=== PATIENT | male | born 1945 | race Hispanic/Latino ===

== ENCOUNTER 2017-04-09 11:26 | Day surgery (SDC) | payer MEDICARE ==
[2017-04-04 09:41] VITALS: BMI 23.3
[2017-04-09] MEDS ORDERED: ceFAZolin IV 1 gm in Dextrose 1 GM/50 ML BAG IVPB ONE ×2 (13:11→13:47)
[2017-04-09] MEDS: Lidocaine 1% Inj (20ml) ONE ×2 (13:15→13:50)
[2017-04-09] MEDS: Bupivacaine-Epi 0.25%-1:200,000 PF Inj ONE ×2 (13:15→13:50)
[2017-04-09] MEDS ORDERED: Lactated Ringer's 1,000 ML IV ONE ×2 (13:16)
[2017-04-09] MEDS ORDERED: Propofol 10 mg/ml Inj (20 ML) ONE (13:18)
[2017-04-09] MEDS ORDERED: Midazolam 2 MG/2 ML VIAL ONE (13:20)
--- NOTE | 2017-04-09 14:43 | PCM.SURG1 ---
Surgeon's Initial Post Op Note - Surgeon's Notes Surgeon: Xander Hudson MD Funeral Arranger: Iris Shelby, PGY-1; Kiki Paige S-III Pre-Operative Diagnosis: Sebacious cyst of posterior neck Operative Findings: Sebacious cyst of posterior neck Post-Operative Diagnosis: Sebacious cyst of posterior neck Operation Performed: Excision of sebacious cyst of posterior neck Specimen/Specimens Removed: Sebacious cyst Estimated Blood Loss: EBL {In ML}: 10 Blood Products Given: N/A Drains Used: No Drains Post-Op Condition: Good Date of Surgery/Procedure: 04/09/17 Time of Surgery/Procedure: 02:20
[2017-04-09 16:25] VITALS: BP 135/69; PULSE 61; RESP 18; TEMP 97.2; O2SAT 100
--- NOTE | 2017-04-22 15:43 | PCM.OP ---
Operative Report - Operative Report Date of Surgery/Procedure: 04/09/17 Time of Surgery/Procedure: 11:00 Surgeon: George Hudson MD. Machinery Engineer: Susan Riley MD. Anesthesia/Sedation: Local anesthesia after sedation. Pre-Operative Diagnosis: 1. Sebaceous cyst of posterior neck, recurrent, approximately 5 cm x 4 cm. Post-Operative Diagnosis: 1. Sebaceous cyst of posterior neck, recurrent, approximately 5 cm x 4 cm. Indication for Surgery: Patient had approximately 5 cm x 4 cm recurrent sebaceous cyst on mid posterior neck. Operative Findings: Sebaceous cyst of posterior neck, approximately 5 cm x 4 cm. Procedure/Operation Description: 1. Excision of the recurrent sebaceous cyst of posterior neck, 5 cm x 4 cm. 2. Layered closure of the wound, complex. 71 y/o male was diagnosed with a sebaceous cyst on posterior neck. Patient was consented for excision of the cyst. Brought to OR, placed in lateral position and posterior neck was prepped and draped. After induction of the sedation, the local anesthesia was injected and the elliptical 5 cm incision was made in the skin and subcutaneous tissue. An upper and lower flap were created. The subdural cyst was completely excised from underlying subcutaneous tissue. It was sent from the table for the pathology. Now, the larger wound was closed in multiple layers. After heavy fashioning the skin edges, the underlying subcu with 2-0 vicryl and another layer with subcu 2-0 vicryl. The skin with 4-0 monocryl, and another layer of skin with the 4-0 nylon, and dry, sterile dressing was applied. Patient tolerated procedure well. The instrument count was correct. There were no apparent complications. The patient was sent to post anesthesia care unit in stable condition. Estimated Blood Loss: 10 cc. Drains: None. Complications: none Specimen: Sebaceous cyst was sent to pathology Discharge & Condition: stable
== END 2017-04-09 16:26 | disposition home or self-care (01) ==
LOC: C.SDS 11:26
PROVIDERS: ATTEND Surgery Surgical Critical Care
DX: L72.3 Sebaceous cyst (principal)
CPT/HCPCS: 11426; 12042; 88305; J2250; J2704; J3010; J7120